=== PATIENT | female | born 1970 | race Caucasian/White ===

== ENCOUNTER 2021-09-27 13:51 | Day surgery (SDC) | payer OTHER ==
[2021-09-27] MEDS ORDERED: DIPRIVAN 200 MG/20 ML IV ONE (13:52)
[2021-09-27] MEDS ORDERED: LIDOCAINE HCL 2% 100 MG/5 ML IJ ONE (13:52)
[2021-09-27] MEDS ORDERED: Lactated Ringers 1,000 ML IV ONE (16:12)
--- NOTE | 2021-09-27 16:54 | XRAY ---
10 seconds fluoroscopy time in surgery for bilateral L4-S1 MBB.
--- NOTE | 2021-09-27 21:46 | XRAY ---
Indication: Bilateral L4-S1 MBB. Intraoperative fluoroscopy provided for 10 seconds. Single digital spot image submitted for interpretation demonstrates posterior needle tips projecting over the expected left and right L4-S1 nerve roots. Correlate with intraoperative findings/report.
== END 2021-09-27 16:17 | disposition home or self-care (01) ==
LOC: SDC-PAIN 13:51
PROVIDERS: ATTEND Psychiatry & Neurology Pain Medicine
DX: M47.816 Spondylosis without myelopathy or radiculopathy, lumbar region (principal); K21.9 Gastro-esophageal reflux disease without esophagitis; F41.9 Anxiety disorder, unspecified; F32.9 Major depressive disorder, single episode, unspecified; Z79.899 Other long term (current) drug therapy
CPT/HCPCS: 64493; 64494; 72020; 77002; J2704

== ENCOUNTER 2022-02-21 13:22 | Day surgery (SDC) | payer OTHER ==
[2022-02-21] MEDS ORDERED: Lactated Ringers 1,000 ML IV ONE (16:25)
[2022-02-21] MEDS ORDERED: DIPRIVAN 200 MG/20 ML IV ONE ×2 (16:54→17:08)
--- NOTE | 2022-02-21 18:32 | XRAY ---
Indication: Right C2-C5 MBB Intraoperative fluoroscopy provided for 31 seconds. 2 digital spot image submitted for interpretation demonstrates posterior needle tips projecting over the expected right C2-C5 nerve roots. Correlate with intraoperative findings/report.
--- NOTE | 2022-02-22 09:35 | XRAY ---
31 seconds fluoroscopy time in surgery for right C2-C5 MBB.
== END 2022-02-21 17:31 | disposition home or self-care (01) ==
LOC: SDC-PAIN 13:22
PROVIDERS: ATTEND Psychiatry & Neurology Pain Medicine
DX: M47.812 Spondylosis without myelopathy or radiculopathy, cervical region (principal); Z79.899 Other long term (current) drug therapy
CPT/HCPCS: 72040; 77002; J2704

== ENCOUNTER 2022-04-11 11:42 | Day surgery (SDC) | payer OTHER ==
[2022-04-11] MEDS ORDERED: Marcaine Mpf 0.5% Vial 30 Ml IJ ONE (11:43)
[2022-04-11] MEDS ORDERED: Decadron 4 MG INJ IV ONE (11:43)
[2022-04-11] MEDS ORDERED: XYLOCAINE 1% HCL 20 ML MDV ONE ×2 (12:58→13:31)
[2022-04-11] MEDS ORDERED: DIPRIVAN 200 MG/20 ML IV ONE (14:31)
[2022-04-11] MEDS ORDERED: Lactated Ringers 1,000 ML IV ONE (15:02)
--- NOTE | 2022-04-11 16:33 | XRAY ---
Indication: Right C2-C5 MBB. Intraoperative fluoroscopy provided for 21 seconds. 2 digital spot image submitted for interpretation demonstrates posterior needle tips projecting over the expected right C2-C5 nerve roots. Correlate with intraoperative findings/report.
--- NOTE | 2022-04-11 16:45 | XRAY ---
21 seconds of fluoroscopy was used in surgery for a right C2-C5 MBB.
--- NOTE | 2022-04-11 18:27 | ANESPROCNO ---
Anesthesia Procedure Note - Anesthesia Procedure Note Procedure Date:: 04/11/22 Procedure Time:: 15:30 Anesthesia Procedure Note: Consulted for peripheral IV access in outpatient surgery for pain procedure after multiple failed attempts by staff. Risks and benefits of midline IV discussed with patient and agrees to proceed. Right upper extremity scanned with ultrasound and target vessel right brachial vein identified. RUE sterile prep and drape 2%CHG70%IPA. Lidocaine 5cc infiltrated in skin and subcutaneous tissue over target vessel. a 21ga X 7cm echo enhanced needle was used to access vessel X 1 attempt. A 0.46mm Nitinol guide wire passed through needle into the target vessel easily. Wire placement in vessel was confirmed with ultrasound in both short and long axis of vessel and needle removed. A 4FR X 10cm introducer/catheter was threaded over wire into vessel and wire removed. Catheter with brisk venous blood return and flushed easily. A sterile occlusive dressing was applied, There were no complications and the patient tolerated the procedure well.
== END 2022-04-11 15:00 | disposition home or self-care (01) ==
LOC: SDC-PAIN 11:42
PROVIDERS: ATTEND Psychiatry & Neurology Pain Medicine
DX: M47.812 Spondylosis without myelopathy or radiculopathy, cervical region (principal); Z79.899 Other long term (current) drug therapy
CPT/HCPCS: 36410; 64490; 64491; 64492; 72040; 76942; 77002; J1100; J2704